=== PATIENT | female | born 1985 | race Caucasian/White ===

== ENCOUNTER 2018-05-26 04:55 | Inpatient (IN) | payer OTHER ==
[~2018-05-26] VITALS: Ht 152.4 cm; Wt 50.8 kg
[2018-05-26 04:55] VITALS: BP 201/121
--- NOTE | 2018-05-26 04:55 | NUR ---
PT [facility]. TAKEN TO BED 10
--- NOTE | 2018-05-26 04:55 | NUR ---
33[facility] PT C/O 09/14 CHEST PAIN/HEAVINESS, X1 HR. WAS NOT ABLE TO HAVE HD THIS AM. PT WAS GIVEN 0.4MG NITRO SL AND 325MG ASPIRIN PO WITH RELIEF, NSR ON SCENE. PT REPORTS PRODUCTIVE COUGH. PT DENIES FEVER, SOB, N/V. LUNG SOUNDS CLEAR BL. BS ACTIVE X4, ABD SOFT FLAT NONTENDER. AOX4, AMBULATORY, RR EVEN AND UNLABORED. L AV FISTULA NOTED, BRUIT AND THRILL NOTED. PT REPORTS BEING ABLE TO MAKE URINE. HX HTN, ESRD (MWF) Addendum: 05/26/18 at 0516 by WENDY PT REPORTS 04/14 HEADACHE
--- NOTE | 2018-05-26 05:04 | NUR ---
EKG PERFORMED AT BEDSIDE. PT COVERED IN GOWN AND BLANKET DURING PROCEDURE
--- NOTE | 2018-05-26 05:25 | NUR ---
X-Ray at bedside.
[2018-05-26 06:06] LABS: BASOPHILS # (AUTO) 0.1 K/uL (0.00-0.22); BASOPHILS % (AUTO) 1.5 % (0.0-2.0); EOSINOPHILS # (AUTO) 0.2 K/uL (0-0.4); EOSINOPHILS % (AUTO) 2.2 % (0.0-4.0); HEMOGLOBIN 11.1 g/dL (12.0-16.0); LYMPHOCYTES % (AUTO) 28.8 % (20.5-51.1); MEAN CORPUSCULAR HEMOGLOBIN 31 pg (27-31); MEAN CORPUSCULAR HGB CONC 33 g/dL (33-37); MEAN CORPUSCULAR VOLUME 95.3 fL (80-94); MONOCYTES # (AUTO) 0.3 K/uL (0.8-1.0); MONOCYTES % (AUTO) 4.4 % (1.7-9.3); NEUTROPHILS # (AUTO) 4.4 K/uL (1.8-7.7); NEUTROPHILS % (AUTO) 63.1 % (42.2-75.2); PLATELET COUNT (AUTO) 144 K/uL (140-450); RED BLOOD CELL COUNT(AUTO) 3.57 MIL/uL (4.20-5.40); RED CELL DISTRIBUTION WIDTH 16.2 % (11.6-13.7)
[2018-05-26 06:23] LABS: PROTHROMBIN TIME 10.6 secs (10.8-13.4)
[2018-05-26 06:30] LABS: ALBUMIN 3.9 g/dL (3.4-5.0); ANION GAP 14.7 (8-16); CARBON DIOXIDE 30.8 mmol/L (21-32); POTASSIUM 5.5 mmol/L (3.5-5.1); TOTAL BILIRUBIN 0.5 mg/dL (0.0-1.0)
[2018-05-26 06:32] LABS: CREATININE 13.6 mg/dL (0.6-1.3)
--- NOTE | 2018-05-26 06:47 | NUR ---
PT RESTING IN BED, RR EVEN AND UNLABORED. VS NOTED. ALL NEEDS MET.
--- NOTE | 2018-05-26 07:05 | NUR ---
recieved report from mona Tavarez.
[2018-05-26] MEDS ORDERED: NITROGLYCERIN 2% 1 GM PKT TP ONE (07:10)
[2018-05-26] MEDS ORDERED: SODIUM POLYSTYRENE 15 GM/60 ML UDBTL PO ONE (07:10)
[2018-05-26] MEDS ORDERED: MORPHINE SULFATE 2 MG/ML SYR IVP ONE (07:15)
[2018-05-26] MEDS ORDERED: ALBUTEROL 0.083% 2.5 MG/3 ML NEBU INH PRN (08:00)
[2018-05-26] MEDS ORDERED: LORazepam 2 MG/ML VIAL IVP PRN (08:00)
[2018-05-26] MEDS ORDERED: HYDROcodone/APAP 5/325 MG 1 TAB TAB PO PRN ×2 (08:00)
[2018-05-26] MEDS ORDERED: ACETAMINOPHEN 325 MG TAB PO PRN (08:00)
[2018-05-26] MEDS ORDERED: hydrALAZINE 20 MG/ML VIAL IM PRN (08:15)
[2018-05-26] MEDS ORDERED: NITROGLYCERIN 0.4 MG TAB SL PRN (08:15)
--- NOTE | 2018-05-26 08:23 | NUR ---
PT TAKEN TO FLOOR BY JOHN LUGO AND EMT HEIKE
--- NOTE | 2018-05-26 08:23 | NUR ---
Patient will be admitted to care of DR. KING. Admited to TELE. Will go to room 114. Belongings list completed. Report to JOHN ARREOLA.
[2018-05-26 08:30] VITALS: BP 189/112
--- NOTE | 2018-05-26 08:30 | NUR ---
RECEIVED SBAR REPORT FROM ER NURSE AT PT BEDSIDE. PATIENT AMBULATORY TO BED. ALERT AND ORIENTED, SOUTH KOREAN SPEAKING. C/O HEADACHE AND CHEST PAIN, MEDICATED BY ER NURSE, PATIENT STATES REDUCED PAIN. PATIENT HAS HX ESRD, AV SHUNT LEFT ARM. ON ROOM AIR, NO ACUTE RESPIRATORY DISTRESS NOTED. BP ON ARRIVAL 189/112, PAGE SENT TO DR. KING TO CLARIFY PRN ORDERS. PATIENT ORIENTED TO HOSPITAL ENVIRONMENT. CALL LIGHT WITHIN REACH. UPDATED ON CURRENT PLAN OF CARE, IN AGREEMENT. IV SITE PATENT AND INTACT. TO F/U MEDICATIONS.
[2018-05-26] MEDS ORDERED: hydrALAZINE 25 MG TAB PO SCH (09:05)
--- NOTE | 2018-05-26 09:06 | NUR ---
PATIENT HAS BEEN SCREENED AND CATEGORIZED MODERATE NUTRITION RISK. PATIENT WILL BE SEEN WITHIN 3-5 DAYS OF ADMISSION. 05/28/18 05/30/[address]
[2018-05-26] MEDS ORDERED: hydrALAZINE 25 MG TAB PO PRN (09:10)
--- NOTE | 2018-05-26 09:12 | NUR ---
DR. KING MADE AWARE CURRENT BP 189/112, RECEIVED PRN HYDRALAZINE PO, MEDICATED ORDERED. TO FOLLOW.
[2018-05-26] MEDS ORDERED: hydrALAZINE 20 MG/ML VIAL IVP PRN (10:45)
--- NOTE | 2018-05-26 10:45 | NUR ---
SPOKE WITH DIALYSIS CENTER FOR ORDERED HD TODAY, SCHEDULED AROUND 1-2PM.
--- NOTE | 2018-05-26 10:46 | NUR ---
PATIENT SEEN BY DR. KING AT BEDSIDE. MD MADE AWARE OF PATIENT'S HEADACHES AND NAUSEA WITH VOMITING, UPDATED TO CURRENT BP 193/120. ORDERS RECEIVED IVP PRN BP MEDICATIONS, CT HEAD ORDERED. TO FOLLOW.
--- NOTE | 2018-05-26 11:10 | NUR ---
PATIENT TAKEN OFF UNIT FOR CT SCAN, NO ACUTE DISTRESS NOTED.
[2018-05-26] MEDS: ONDANSETRON 4 MG/2 ML VIAL IVP PRN ×2 (11:39→11:44)
[2018-05-26 12:00] VITALS: BP 189/122
[2018-05-26] MEDS ORDERED: AMLO10TA4 PO (12:27)
[2018-05-26] MEDS ORDERED: LOSA100T1 PO (12:27)
[2018-05-26] MEDS ORDERED: cloNIDine 0.1 MG TAB PO PRN (13:50)
--- NOTE | 2018-05-26 14:00 | NUR ---
PATIENT SEEN BY DR. MICHAUD AT BEDSIDE. HD NURSE AT BEDSIDE. PATIENT TO HAVE HD. PER MD ORDERS, MEDICATE FOR ELEVATED BP DURING HD. TO FOLLOW.
--- NOTE | 2018-05-26 14:56 | NUR ---
PATIENT HAVING INCREASED AGITATION WITH ANXIETY. MEDICATED ORDERED WITH ATIVAN IVP. PATIENT BP TAKEN AT BEDSIDE 185/121, PER HD NURSE, OKAY TO GIVE ORDERED MEDICATION AT THIS TIME. MEDICATED ORDERED.
--- NOTE | 2018-05-26 15:10 | NUR ---
PATIENT STARTED ON HD AT BEDSIDE. NO ACUTE DISTRESS NOTED.
[2018-05-26 16:00] VITALS: BP 159/113
--- NOTE | 2018-05-26 17:09 | NUR ---
CONTINUED ON HD, PATIENT RESTING IN BED. NO ACUTE DISTRESS NOTED. PATIENT HAVING BP WITHIN NORMAL LIMITS AT THIS TIME.
--- NOTE | 2018-05-26 18:00 | NUR ---
PATIENT CONTINUED ON HD. NO ACUTE DISTRESS NOTED. Addendum: 05/26/18 at 1928 by Antonio Chao RN BP NOTED 109/73. WNL.
--- NOTE | 2018-05-26 19:10 | NUR ---
SBAR REPORT GIVEN TO JOHN WILKERSON AT PT BEDSIDE. PATIENT FINISHED WITH HD AT BEDSIDE AT THIS TIME. OUTPUT 3300 NOTED PER HD NURSE. PATIENT RESTING IN BED, DENIES DISCOMFORT AT THIS TIME. NO ACUTE DISTRESS NOTED.
--- NOTE | 2018-05-26 19:15 | NUR ---
RECEIVED PT FROM ELBA PEDROZA RN PT BRITISH SPEAKER AAOX4 AMBULATORY S/P HD 3,300 ML OUT ON TELEMETRY SR DENIES ANY PAIN AT THIS TIME INITIAL ASSESSMENT DONE
[2018-05-26 20:00] VITALS: BP 123/78
--- NOTE | 2018-05-26 20:55 | NUR ---
DR SNOW UTILITY WORKER PRODUCTION IS HERE AND SEE THE PT AND ORDER TO HOLD BLOOD PRESSURE MEDIC
[2018-05-26] MEDS ORDERED: LOSARTAN 50 MG TAB PO SCH (21:00)
--- NOTE | 2018-05-26 21:30 | NUR ---
AFTER PT TAKEN MRSA SWAB FROM NOSE PT HAS EPISTAXIS AND AND DR KING WAS NOTIFY
--- NOTE | 2018-05-26 23:00 | NUR ---
PT DOES NOT HAVE EPISTAXIS GETTING SLEEP
[2018-05-27] VITALS: BP 119/78
--- NOTE | 2018-05-27 | NUR ---
PT SLEEPING NOT DISTRESS NOTED ON TELEMETRY SR DENIES ANY PAIN
[2018-05-27 04:00] VITALS: BP 136/83
--- NOTE | 2018-05-27 04:00 | NUR ---
SPONGE BATH GIVEN LINEN CHANGED NOT EPISTAXIS NOTED ON TELEMETRY SR
--- NOTE | 2018-05-27 06:32 | NUR ---
PT SLEEPING, ON TELEMETRY SR NOTDISTRESS NOTED
--- NOTE | 2018-05-27 07:10 | NUR ---
PT REPORT RECEIVED FROM RUBBER FACTORY WORKER NURSE AT BEDSIDE. PT IS AWAKE AND ALERT, NO S/S OF DISTRESS NOTED. IV SITE NOTED ON R AC, 20 GAUGE, SALINE LOCK. DIALYSIS SHUNT NOTED ON L FOREARM. PT IS ON HD M, W, F. SKIN IS INTACT. PT IS ON ROOM AIR. CALL LIGHT WITHIN REACH, BED IS LOW. WILL CONTINUE TO MONITOR.
[2018-05-27 07:49] LABS: ALBUMIN 3.7 g/dL (3.4-5.0); ANION GAP 7.6 (8-16); POTASSIUM 4.6 mmol/L (3.5-5.1); TOTAL BILIRUBIN 0.5 mg/dL (0.0-1.0)
[2018-05-27 08:00] VITALS: BP 151/94
[2018-05-27 08:04] LABS: CREATININE 8.5 mg/dL (0.6-1.3)
[2018-05-27 08:16] LABS: BASOPHILS % (AUTO) 0.4 % (0.0-2.0); EOSINOPHILS # (AUTO) 0.1 K/uL (0-0.4); EOSINOPHILS % (AUTO) 0.7 % (0.0-4.0); HEMATOCRIT 30.7 % (36-48); HEMOGLOBIN 10.2 g/dL (12.0-16.0); LYMPHOCYTES # (AUTO) 1.8 K/uL (2.5-16.5); LYMPHOCYTES % (AUTO) 21.3 % (20.5-51.1); MEAN CORPUSCULAR HEMOGLOBIN 32 pg (27-31); MEAN CORPUSCULAR HGB CONC 33 g/dL (33-37); MEAN CORPUSCULAR VOLUME 95.7 fL (80-94); MONOCYTES # (AUTO) 0.6 K/uL (0.8-1.0); MONOCYTES % (AUTO) 7.3 % (1.7-9.3); NEUTROPHILS # (AUTO) 5.8 K/uL (1.8-7.7); NEUTROPHILS % (AUTO) 70.3 % (42.2-75.2); PLATELET COUNT (AUTO) 142 K/uL (140-450); RED BLOOD CELL COUNT(AUTO) 3.21 MIL/uL (4.20-5.40); RED CELL DISTRIBUTION WIDTH 16.2 % (11.6-13.7); WHITE BLOOD COUNT (AUTO) 8.2 K/uL (4.8-10.8)
[2018-05-27] MEDS ORDERED: amLODIPine 5 MG TAB PO SCH (09:00)
[2018-05-27] MEDS ORDERED: CLON0.1T42 PO (10:44)
--- NOTE | 2018-05-27 11:30 | NUR ---
PT IS ALERT AND AWAKE, NO S/S OF DISTRESS NOTED AT THIS TIME. WILL CONTINUE TO MONITOR.
--- NOTE | 2018-05-27 11:55 | NUR ---
RECEIVED ORDER FOR HIGH RISK CLINIC VISIT WITH [facility]. I CALLED KALEIGH AT [facility] AND FAXED THE ORDER. SHE SAID WE WERE TO MAKE THE APPOINTMENT.
[2018-05-27 12:00] VITALS: BP 142/89
--- NOTE | 2018-05-27 13:47 | NUR ---
Initial review faxed to [facility].
[2018-05-27 16:00] VITALS: BP 133/87
--- NOTE | 2018-05-27 17:30 | NUR ---
PT HAS DISCHARGED. DISCHARGE DOCUMENTS, INSTRUCTIONS, AND PRESCRIPTION GIVEN. SIGNATURES OBTAINED. PT VERBALIZED UNDERSTANDING. IV SITE DC'D, WRIST BANDS REMOVED. PT LEFT IN A STABLE CONDITION WITH ALL HER BELONGINGS. HER PICKED HER UP.
--- NOTE | 2018-05-27 17:32 | NUR ---
PT REFUSED FLU SHOT, STATES SHE RECEIVED IT AT A CLINIC THREE WEEKS AGO.
--- NOTE | 2018-05-29 11:44 | NUR ---
1897 PATIENT WAS CALLED ON PHONE PER REQUEST OF DCM BY BRAXTON LOPEZ WHO IS CANADIAN SPEAKING TO INFORM PATIENT THAT A PHYSICIAN APPOINTMENT HAS BEEN MADE FOR HER AT THE [facility] AT [address] [place] [address] [id number] AND PROVIDED HER WITH PHONE NUMBER [phone] AND INFORMED HER THAT HER APPOINTMENT IS FOR TOMORROW Saturday AT 10:30 AM. PT ACKNOWLEDGED THE INFORMATION.
== END 2018-05-27 17:30 | disposition home or self-care (01) | DRG 194 ==
LOC: MED 04:55 → MTU 08:14
PROVIDERS: ADMIT Hospitalist; ATTEND Hospitalist
DX: I13.2 Hypertensive heart and chronic kidney disease with heart failure and with stage 5 chronic kidney disease, or end stage renal disease (principal); E87.5 Hyperkalemia; N18.6 End stage renal disease; K21.9 Gastro-esophageal reflux disease without esophagitis; I50.43 Acute on chronic combined systolic (congestive) and diastolic (congestive) heart failure; D63.8 Anemia in other chronic diseases classified elsewhere; I16.0 Hypertensive urgency; I07.1 Rheumatic tricuspid insufficiency; I34.0 Nonrheumatic mitral (valve) insufficiency; Z99.2 Dependence on renal dialysis; Z98.51 Tubal ligation status; Z82.49 Family history of ischemic heart disease and other diseases of the circulatory system
CPT/HCPCS: 36415; 70450; 71045; 80053; 83540; 83880; 84484; 85025; 85610; 85730; 87081; 93005; 96374; 99285; J0360; J2060; J2270; J2405; Q0092

== ENCOUNTER 2018-07-23 01:01 | Emergency (ER) | payer OTHER ==
[~2018-07-23] VITALS: Ht 152.4 cm; Wt 52.2 kg
[~2018-07-23 01:01] MED LIST: AMLO10TA4 PO; CLON0.1T42 PO; LOSA100T1 PO
[2018-07-23 01:05] VITALS: BP 231/123
--- NOTE | 2018-07-23 01:10 | NUR ---
PT TO ER BED 2 , ER MADE AWARE OF B/P
--- NOTE | 2018-07-23 01:19 | NUR ---
PT PRESENTS TO ED WITH C/O HIGH BP WITH HEADACHE AND BLURRY VISION. PT REPORTS GRADUAL ONSET OVER 1 HR. PT REPORTS PAIN TO RIGHT AND POSTERIOR HEAD. PT PLACED INTO BED, PENDING MD LOPEZ. ER MD AWARE OF BP.
[2018-07-23] MEDS ORDERED: LORazepam 2 MG/ML VIAL IM ONE (01:20)
[2018-07-23] MEDS ORDERED: cloNIDine 0.1 MG TAB PO ONE (01:20)
[2018-07-23] MEDS ORDERED: hydrALAZINE 20 MG/ML VIAL IM ONE (02:25)
[2018-07-23 02:46] VITALS: BP 142/78
--- NOTE | 2018-07-23 02:47 | NUR ---
Patient discharged with v/s stable. Written and verbal after care instructions given and explained. Patient verbalized understanding. Ambulatory with steady gait. All questions addressed prior to discharge. Advised to follow up with PMD.
== END 2018-07-23 02:47 | disposition home or self-care (01) ==
LOC: MED 01:01
DX: I12.0 Hypertensive chronic kidney disease with stage 5 chronic kidney disease or end stage renal disease (principal); N18.6 End stage renal disease; Z79.899 Other long term (current) drug therapy
CPT/HCPCS: 70450; 81002; 81025; 96372; 99284; J2060

== ENCOUNTER 2018-07-30 07:48 | Inpatient (IN) | payer OTHER ==
[~2018-07-30] VITALS: Ht 152.4 cm; Wt 53.5 kg
--- NOTE | 2018-07-30 07:48 | NUR ---
PATIENT BIBA TO BED 2 AT THIS TIME.
--- NOTE | 2018-07-30 07:50 | NUR ---
33Y/F BIB EMS FROM A DIALYSIS CENTER WITH C/O HEAD AHCE 03/14. GIVEN CLONIDINE X 2 AT THE FACILITY; BP 180/106, SPO2 100% ON 2LPM N/C; AV FISTULA LT ARM, IV 20G RT AC PLACE BY EMS; AAO X4, ANSWER QUESTIONS APPROPRIATELY. PT BED DOWN, BEDRAIL UP X 1, ER MD AWARE AND NOTIFIED OF PT STATUS. HX; HTN, DM RX; CLONIDINE, AMLOPIDINE, PHOSLO, LOSARTAN
[2018-07-30 07:52] VITALS: BP 180/106
[2018-07-30] MEDS ORDERED: ENALAPRILAT 2.5 MG/2 ML VIAL IVP ONE ×2 (08:20→09:40)
[2018-07-30] MEDS ORDERED: LORazepam 2 MG/ML VIAL IVP ONE (08:20)
[2018-07-30] MEDS ORDERED: FUROSEMIDE 40 MG/4 ML VIAL IVP ONE (08:20)
--- NOTE | 2018-07-30 08:24 | NUR ---
Patient being evaluated by physician at bedside.
--- NOTE | 2018-07-30 08:27 | NUR ---
PT IS NOT ABLE TO GIVE URINE, DIALYSIS PT
--- NOTE | 2018-07-30 08:45 | NUR ---
RAD/CT AT BEDSIDE
[2018-07-30 09:06] LABS: EOSINOPHILS # (AUTO) 0.1 K/uL (0-0.4); EOSINOPHILS % (AUTO) 1.8 % (0.0-4.0); HEMATOCRIT 31.9 % (36-48); HEMOGLOBIN 10.5 g/dL (12.0-16.0); LYMPHOCYTES # (AUTO) 1.2 K/uL (2.5-16.5); MEAN CORPUSCULAR HEMOGLOBIN 30 pg (27-31); MEAN CORPUSCULAR HGB CONC 33 g/dL (33-37); MEAN CORPUSCULAR VOLUME 92.2 fL (80-94); MONOCYTES # (AUTO) 0.3 K/uL (0.8-1.0); MONOCYTES % (AUTO) 6.3 % (1.7-9.3); NEUTROPHILS # (AUTO) 3.2 K/uL (1.8-7.7); NEUTROPHILS % (AUTO) 65.9 % (42.2-75.2); PLATELET COUNT (AUTO) 143 K/uL (140-450); RED BLOOD CELL COUNT(AUTO) 3.46 MIL/uL (4.20-5.40); RED CELL DISTRIBUTION WIDTH 15.1 % (11.6-13.7); WHITE BLOOD COUNT (AUTO) 4.9 K/uL (4.8-10.8)
[2018-07-30] MEDS ORDERED: cloNIDine 0.1 MG TAB PO ONE (09:40)
--- NOTE | 2018-07-30 09:40 | NUR ---
PT STATES SHE DOES NOT PRODUCE URINE
[2018-07-30 09:41] LABS: PROTHROMBIN TIME 9.8 secs (10.8-13.4)
[2018-07-30 09:42] LABS: ANION GAP 11.2 (8-16); POTASSIUM 4.2 mmol/L (3.5-5.1)
[2018-07-30 09:44] LABS: CREATININE 5.4 mg/dL (0.6-1.3)
[2018-07-30 09:57] LABS: ALBUMIN 3.6 g/dL (3.4-5.0); TOTAL BILIRUBIN 0.4 mg/dL (0.0-1.0)
[2018-07-30] MEDS ORDERED: LISINOPRIL 10 MG TAB ONE (10:01)
[2018-07-30 10:14] LABS: AMYLASE 47 U/L (25-115); LIPASE 156 U/L (73-393)
--- NOTE | 2018-07-30 10:41 | NUR ---
Patient appears to be resting comfortably in bed. Respirations even and unlabored.
[2018-07-30] MEDS ORDERED: ONDANSETRON 4 MG/2 ML VIAL IVP PRN (10:45)
[2018-07-30] MEDS ORDERED: HYDROcodone/APAP 5/325 MG 1 TAB TAB PO PRN (10:45)
[2018-07-30] MEDS ORDERED: hydrALAZINE 20 MG/ML VIAL IVP PRN (10:45)
--- NOTE | 2018-07-30 11:10 | NUR ---
Patient will be admitted to care of . Admited to TELE FLOOR. Will go to room 105-A. Belongings list completed. Report to JOHN THURSTON.
[2018-07-30 11:20] VITALS: BP 126/87
--- NOTE | 2018-07-30 11:25 | NUR ---
RECEIVED BEDSIDE REPORT FROM ER NURSE. PATIENT AAOX4. PATIENT MOSOTHO SPEAKING. NO SIGNS OF RESPIRATORY DISTRESS, ON RA. PATIENT AMBULATORY, IS ABLE TO AMBULATE TO BATHROOM. SKIN INTACT. IV ON R FA 20 G, SALINE LOCK, CLEAN DRY AND INTACT. PATIENT W L AV FISTULA ACCESS, COVERED WITH DRESSING. L ARM RESTRICTION SIGN POSTED. STRICT I&O SIGN POSTED. BED IN LOW POSITION, CALL LIGHT WITHIN REACH. WILL CONTINUE TO MONITOR.
--- NOTE | 2018-07-30 13:05 | NUR ---
PATIENT SLEEPING. NO SIGNS OF DISTRESS NOTED, ON RA. WILL CONTINUE TO MONITOR.
[2018-07-30] MEDS ORDERED: ALPRAZolam 0.5 MG TAB PO PRN (13:20)
[2018-07-30 13:40] VITALS: BP 132/76
--- NOTE | 2018-07-30 13:40 | NUR ---
PT UNABLE TO GIVE SPUTUM AT THIS TIME. LEFT SPUTUM CUP AT BEDSIDE FOR PT. WILL CONT TO MONITOR PT.
--- NOTE | 2018-07-30 14:00 | NUR ---
PATIENT RETURNED FROM CT SCAN. PATIENT TOLERATED WELL. WILL CONTINUE TO MONITOR.
--- NOTE | 2018-07-30 15:10 | NUR ---
PATIENT SLEEPING. NO SIGNS OF DISTRESS NOTED. WILL CONTINUE TO MONITOR.
[2018-07-30 16:00] VITALS: BP 151/91
--- NOTE | 2018-07-30 17:00 | NUR ---
PATIENT SPEAKING ON CELL PHONE. NO SIGNS OF DISTRESS NOTED. WILL CONTINUE TO MONITOR.
--- NOTE | 2018-07-30 18:10 | NUR ---
PATIENT AMBULATED TO BATHROOM. NO SIGNS OF DISTRESS. WILL CONTINUE TO MONITOR.
--- NOTE | 2018-07-30 19:29 | NUR ---
GAVE BEDSIDE REPORT TO FARMER CASH GRAIN NURSE. PATIENT ENDORSED IN STABLE CONDITION.
--- NOTE | 2018-07-30 19:30 | NUR ---
RECEIVED REPORT FROM DAY SHIFT RN. PT IS A&OX4. RESPIRATIONS ARE EQUAL AND UNLABORED. DENIES ANY SOB OR PAIN. PT WITH LEFT AV FISTULA ACCESS HAD DIALYSIS TODAY NOT IN [facility]. PATIENT RECEIVES HEMODIALYSIS ON MONDAYS,WEDNESDAYS, AND FRIDAYS. PER NO NEED FOR DIALYSIS TOMORROW. LEFT ARM RESTRICTION SIGN IN ROOM ALSO PINK RESTRICTION ARM BAND APPLIED. STRICT I&O SIGN IN ROOM. PT WITH SALINE LOCK ON R FA 20G. IV IS PATENT AND CLEAN. SKIN INTACT. PLAN OF CARE DISCUSSED WITH PT. ALL SAFETY MEASURES ARE IN PLACE.
[2018-07-30 20:00] VITALS: BP 146/82
--- NOTE | 2018-07-30 20:33 | NUR ---
VITAL SIGNS ARE WITHIN NORMAL LIMITS. B/P ELEVATED 146/82 AND 71BPM. DUE MEDICATION GIVEN FOR B/P. PT TOLERATED WELL. WILL CONTINUE TO MONITOR.
[2018-07-30] MEDS ORDERED: LOSARTAN 50 MG TAB PO SCH (21:00)
[2018-07-30] MEDS ORDERED: LOSARTAN POTASSIUM 100 MG PO SCH (21:00)
[2018-07-31] VITALS: BP 136/79
[2018-07-31] MEDS: ACETAMINOPHEN 325 MG TAB PO PRN ×2 (00:17→08:04)
--- NOTE | 2018-07-31 00:17 | NUR ---
VITAL SIGNS ARE WITHIN NORMAL LIMITS. PT COMPLAIN OF HEADACHE. TYLENOL WAS GIVEN. WILL CONTINUE TO MONITOR.
--- NOTE | 2018-07-31 02:10 | NUR ---
PT ASLEEP. RESPIRATIONS ARE EQUAL AND UNLABORED. NO DISTRESS NOTED. CALL LIGHT WITHIN REACH.
[2018-07-31 03:50] VITALS: BP 126/77
--- NOTE | 2018-07-31 03:52 | NUR ---
VITAL SIGNS ARE WITHIN NORMAL LIMITS. PT DENIES ANY PAIN. ALL NEEDS MET AT THIS TIME. CALL LIGHT WITHIN REACH.
--- NOTE | 2018-07-31 07:29 | NUR ---
ENDORSED PATIENT TO DAY SHIFT RN. PATIENT IS IN STABLE CONDITION.
--- NOTE | 2018-07-31 07:30 | NUR ---
RECEIVED BEDSIDE REPORT FROM INSURANCE COORDINATOR NURSE. PATIENT IS AWAKE, ALERT AND ORIENTEDX4. NO SIGNS OF DISTRESS ON RA. SKIN IS INTACT. IV ON L FA 20G SL. CLEAN,DRY AND INTACT. DIALYSIS AV SHUNT ON L ARM, NO B/P OR VENIPUNCTURE ON L ARM SIGNS POSTED, RESTRICTED ARM BAND IN PLACE. PATIENT IS AMBULATORY, CONTINENT. NO COMPLAINTS AT THIS TIME. BED IN LOW POSITION. CALL LIGHT WITHIN REACH. WILL CONTINUE TO MONITOR THE PATIENT.
[2018-07-31 07:58] LABS: BASOPHILS % (AUTO) 0.7 % (0.0-2.0); EOSINOPHILS # (AUTO) 0.1 K/uL (0-0.4); EOSINOPHILS % (AUTO) 1.4 % (0.0-4.0); HEMATOCRIT 32.4 % (36-48); HEMOGLOBIN 10.6 g/dL (12.0-16.0); LYMPHOCYTES # (AUTO) 1.9 K/uL (2.5-16.5); LYMPHOCYTES % (AUTO) 33.1 % (20.5-51.1); MEAN CORPUSCULAR HEMOGLOBIN 31 pg (27-31); MEAN CORPUSCULAR HGB CONC 33 g/dL (33-37); MEAN CORPUSCULAR VOLUME 93.7 fL (80-94); MONOCYTES # (AUTO) 0.5 K/uL (0.8-1.0); MONOCYTES % (AUTO) 8.8 % (1.7-9.3); NEUTROPHILS # (AUTO) 3.1 K/uL (1.8-7.7); PLATELET COUNT (AUTO) 148 K/uL (140-450); RED BLOOD CELL COUNT(AUTO) 3.46 MIL/uL (4.20-5.40); RED CELL DISTRIBUTION WIDTH 15.2 % (11.6-13.7); WHITE BLOOD COUNT (AUTO) 5.6 K/uL (4.8-10.8)
[2018-07-31 08:00] VITALS: BP 122/71
--- NOTE | 2018-07-31 08:05 | NUR ---
ADMINISTERED MEDS. PATIENT TOLERATED WELL. WILL CONTINUE TO MONITOR THE PATIENT
--- NOTE | 2018-07-31 08:53 | NUR ---
PATIENT HAS BEEN SCREENED AND CATEGORIZED MODERATE NUTRITION RISK. PATIENT WILL BE SEEN WITHIN 3-5 DAYS OF ADMISSION. 08/01/18 08/03/[address]
[2018-07-31] MEDS ORDERED: LISINOPRIL 20 MG TAB PO ONE (09:00)
[2018-07-31] MEDS ORDERED: amLODIPine 5 MG TAB PO SCH (09:00)
[2018-07-31] MEDS ORDERED: VIT-B COMP/VIT-C/FOLIC ACID 1 TAB PO SCH (09:00)
[2018-07-31] MEDS ORDERED: NON-FORMULARY ITEM (Amlodipine Besylate (Amlodipine) 10 MG) PO SCH (09:00)
[2018-07-31 09:15] LABS: ANION GAP 14.6 (8-16); CARBON DIOXIDE 30.6 mmol/L (21-32)
[2018-07-31 09:17] LABS: MAGNESIUM 2.3 mg/dL (1.8-2.4); PHOSPHORUS 6.4 mg/dL (2.5-4.9)
[2018-07-31 09:18] LABS: CREATININE 8.7 mg/dL (0.6-1.3); POTASSIUM 6.2 mmol/L (3.5-5.1)
--- NOTE | 2018-07-31 10:24 | NUR ---
SPOKE TO ENO[facility], DIALYSIS NURSE ABOUT STAT HD ORDER TODAY PER DR BAPTISTE. THEY SAID THEY WILL BE HERE SOON POSSIBLE. DR BAPTISTE WILL GIVE THEM THE DIALYSIS ORDER.
--- NOTE | 2018-07-31 10:47 | NUR ---
PATIENT SIGNED DIALYSIS CONSENT. NO SIGNS OF DISTRESS. WILL CONTINUE TO MONITOR THE PATIENT
[2018-07-31] MEDS ORDERED: AMOX500C25 PO (10:53)
[2018-07-31 12:00] VITALS: BP 130/80
--- NOTE | 2018-07-31 12:33 | NUR ---
HD NURSE AT BEDSIDE. HD ORDERS ARE IN. PATIENT IN NO SIGNS OF DISTRESS. WILL CONTINUE TO MONITOR THE PATIENT
--- NOTE | 2018-07-31 14:00 | NUR ---
NOT ADMINISTERING ANTIBIOTICS UNTIL AFTER DIALYSIS. PATIENT TOLERATING DIALYSIS WELL.
--- NOTE | 2018-07-31 14:39 | NUR ---
PATIENT SITTING IN BED. NO SIGNS OF DISTRESS ON RA. WILL CONTINUE TO MONITOR THE PATIENT
--- NOTE | 2018-07-31 15:54 | NUR ---
VITALS ARE STABLE AFTER DIALYSIS 2L OUT. WILL ADMINISTER ANTIBIOTICS NOW. POTASSIUM LAB ORDER IN ONE HOUR. WILL CONTINUE TO MONITOR THE PATIENT
[2018-07-31 16:00] VITALS: BP 120/65
--- NOTE | 2018-07-31 17:30 | NUR ---
EDUCATED PATIENT ON DISCHARGE INSTRUCTIONS. EDUCATED ON DISEASE PROCESS, ABN S/SX AND WHEN TO GO TO THE ER, EDUCATED ON MEDS, GAVE PRESCRIPTION, PATIENT HAS PNA AND FLU VACCINE UP TO DATE. EDUCATED ON F/U W PCP AND CHRONIC CONDITION NURSE AND TO GET SCHEDULED DIALYSIS TOMORROW. REMOVED IV, TIP INTACT. PATIENT TO CHANGE AND WILL WAIT FOR RIDE HOME.
--- NOTE | 2018-07-31 18:40 | NUR ---
REMOVED ID BANDS AND TELE MONITOR. PATIENT LEFT WALKING W IN STABLE CONDITION
== END 2018-07-31 18:40 | disposition home or self-care (01) | DRG 199 ==
LOC: MED 07:48 → MTU 10:18
PROVIDERS: ADMIT Internal Medicine Pulmonary Disease; ATTEND Internal Medicine Pulmonary Disease
DX: I16.0 Hypertensive urgency (principal); N18.6 End stage renal disease; E87.5 Hyperkalemia; D63.1 Anemia in chronic kidney disease; N25.81 Secondary hyperparathyroidism of renal origin; K05.10 Chronic gingivitis, plaque induced; I12.0 Hypertensive chronic kidney disease with stage 5 chronic kidney disease or end stage renal disease; Z99.2 Dependence on renal dialysis; Z82.49 Family history of ischemic heart disease and other diseases of the circulatory system
CPT/HCPCS: 36415; 70450; 71045; 71260; 80048; 80053; 82150; 82550; 83690; 83735; 83880; 84100; 84132; 84484; 84703; 85025; 85379; 85610; 85730; 87081; 87804; 93005; 96374; 96375; 96376; 99285; J0360; J0696; J1940; J2060; J3490; J7060; Q0092; Q9967

== ENCOUNTER 2018-08-11 00:45 | Emergency (ER) | payer OTHER ==
[~2018-08-11] VITALS: Ht 149.9 cm; Wt 55.3 kg
[~2018-08-11 00:45] MED LIST changes: +AMOX500C25 PO
--- NOTE | 2018-08-11 01:00 | NUR ---
PT AMBULATED TO BED 4 WITH VSS.
[2018-08-11 01:03] VITALS: BP 175/100
--- NOTE | 2018-08-11 01:10 | NUR ---
PT C/O HTN, HEADACHE, AND ANXIETY. PT BP 172/96, STATES SHE HAS A THROBBING HEADACHE AT 6/10, HAS DIZZYNESS AND NAUSEA. PT DENIES CP, BLURRY VISISON, OR SOB AT THIS TIME. PT HAS HEMODIALYSIS Q SATURDAY, SATURDAY, SATURDAY, AND SATURDAY. ER MD TO SEE PT. SIDE RAILS UP, BED IN LOWEST POSITION, HEAD OF BED ELEVATED. WILL CONTINUE TO MONITOR. MEDHX: HTN, RENAL DISEASE, HEMODIALYSIS, ANXIETY RX: CLONIDINE, AMLODIPNE, AMOXACILLIN
--- NOTE | 2018-08-11 01:17 | NUR ---
Patient being evaluated by physician at bedside.
[2018-08-11] MEDS ORDERED: KETOROLAC 60 MG/2 ML VIAL IM ONE (01:25)
[2018-08-11 02:00] VITALS: BP 162/98
--- NOTE | 2018-08-11 02:00 | NUR ---
Patient discharged with v/s stable. Written and verbal after care instructions given and explained. Patient alert, oriented and verbalized understanding of instructions. Ambulatory with steady gait. All questions addressed prior to discharge. ID band removed. Patient advised to follow up with PMD. Rx of motrin, atarax, and norco given. Patient educated on indication of medication including possible reaction and side effects. Opportunity to ask questions provided and answered.
== END 2018-08-11 02:00 | disposition home or self-care (01) ==
LOC: MED 00:45
DX: R51 Headache (principal); F41.9 Anxiety disorder, unspecified; I10 Essential (primary) hypertension; Z79.2 Long term (current) use of antibiotics; Z79.899 Other long term (current) drug therapy
CPT/HCPCS: 96372; 99283; J1885

== ENCOUNTER 2018-08-14 18:42 | Inpatient (IN) | payer OTHER ==
[~2018-08-14] VITALS: Ht 152.4 cm; Wt 48.5 kg
[2018-08-14 19:15] VITALS: BP 193/100
--- NOTE | 2018-08-14 19:18 | NUR ---
TO LOBBY A/W BED, APPLIED NASAL CLAMP, ERMD NOTED.
--- NOTE | 2018-08-14 19:51 | NUR ---
PT AMBULATED TO BED 11
--- NOTE | 2018-08-14 20:00 | NUR ---
33/F PRESENTS TO ED, C/O EPISTAXIS, STARTED 2 HRS AGO. PT WITH NOSE CLAMP AT THIS TIME, PLACED IN TRIAGE. PT REPORTED THAT SHE ALSO HAD EPITAXIS THAT RESOLVED IN 30 MINS LAST NIGHT AFTER HD. PT REPORTS 3/10 HEADACHE AT THIS TIME. PT AOX4, GCS 15, RR EVEN AND UNLABORED. LUNG SOUNDS CLEAR BL. L FA AV SHUNT NOTED, +BRUIT, +THRILL. HX HTN, ESRD (HD ON MWF)
[2018-08-14 20:36] LABS: EOSINOPHILS # (AUTO) 0.2 K/uL (0-0.4); HEMATOCRIT 35.1 % (36-48); HEMOGLOBIN 11.2 g/dL (12.0-16.0); MEAN CORPUSCULAR HGB CONC 32 g/dL (33-37); MONOCYTES # (AUTO) 0.4 K/uL (0.8-1.0); NEUTROPHILS # (AUTO) 4.8 K/uL (1.8-7.7); WHITE BLOOD COUNT (AUTO) 7.8 K/uL (4.8-10.8)
[2018-08-14 20:42] LABS: BASOPHILS % (AUTO) 0.3 % (0.0-2.0); EOSINOPHILS % (AUTO) 2.4 % (0.0-4.0); LYMPHOCYTES # (AUTO) 2.4 K/uL (2.5-16.5); LYMPHOCYTES % (AUTO) 30.8 % (20.5-51.1); MEAN CORPUSCULAR HEMOGLOBIN 30 pg (27-31); MEAN CORPUSCULAR VOLUME 92.9 fL (80-94); MONOCYTES % (AUTO) 5.2 % (1.7-9.3); NEUTROPHILS % (AUTO) 61.3 % (42.2-75.2); PLATELET COUNT (AUTO) 183 K/uL (140-450); RED BLOOD CELL COUNT(AUTO) 3.78 MIL/uL (4.20-5.40); RED CELL DISTRIBUTION WIDTH 15.3 % (11.6-13.7)
[2018-08-14 20:55] LABS: PROTHROMBIN TIME 9.6 secs (10.8-13.4)
[2018-08-14 20:56] LABS: ANION GAP 15.2 (8-16); CARBON DIOXIDE 31.3 mmol/L (21-32); POTASSIUM 5.5 mmol/L (3.5-5.1)
[2018-08-14 20:58] LABS: CREATININE 10.2 mg/dL (0.6-1.3)
[2018-08-14 20:59] LABS: ALBUMIN 3.5 g/dL (3.4-5.0); TOTAL BILIRUBIN 0.3 mg/dL (0.0-1.0)
[2018-08-14] MEDS ORDERED: SODIUM POLYSTYRENE 15 GM/60 ML UDBTL PO ONE (21:10)
[2018-08-14] MEDS ORDERED: SODIUM POLYSTYRENE 15 GM/60 ML UDBTL ONE (21:39)
--- NOTE | 2018-08-14 21:55 | NUR ---
HIGH BP, ERMD NOTED, WITH ORDER, MEDICATED, PATIENT TOLERATED WELL.
[2018-08-14] MEDS ORDERED: cloNIDine 0.1 MG TAB PO ONE (22:00)
[2018-08-14] MEDS ORDERED: hydrALAZINE 20 MG/ML VIAL IM ONE (22:30)
[2018-08-14] MEDS ORDERED: ONDANSETRON 4 MG ODT PO ONE (22:30)
--- NOTE | 2018-08-14 22:30 | NUR ---
PT BP 191/120, HR 98, PT REPORTS VOMITING AFTER CLONIDINE PO. PT REPORTS L SIDED CHEST HEAVINESS, NOT PAIN. ER MD MADE AWARE
--- NOTE | 2018-08-14 23:30 | NUR ---
PT C/O SUDDEN ONSET L SIDED CP, RADIATING TO L SHOULDER. PT RESTLESS WITH FACIAL GRIMACING. ER MD MADE AWARE. EMT AT BEDSIDE FOR EKG.
[2018-08-14] MEDS ORDERED: DILTIAZEM 25 MG/5 ML VIAL IVP ONE (23:35)
--- NOTE | 2018-08-14 23:45 | NUR ---
X-RAY AT BEDSIDE.
[2018-08-14] MEDS ORDERED: MORPHINE SULFATE 4 MG/ML SYR IVP STA (23:48)
[2018-08-15] VITALS (9 sets, daily range): BP systolic 140–180; BP diastolic 83–108
[2018-08-15] MEDS ORDERED: MULT-1469 PO (00:19)
[2018-08-15] MEDS ORDERED: ACETAMINOPHEN 325 MG TAB PO PRN (00:20)
[2018-08-15] MEDS ORDERED: HYDROcodone/APAP 5/325 MG 1 TAB TAB PO PRN (00:20)
[2018-08-15] MEDS ORDERED: ONDANSETRON 4 MG/2 ML VIAL IVP PRN (00:20)
--- NOTE | 2018-08-15 01:30 | NUR ---
Patient will be admitted to care of DR. HOGAN. Admited to TELE. Will go to room 106B. Belongings list completed. Report to JOHN SIMMONS.
--- NOTE | 2018-08-15 01:35 | NUR ---
RECEIVED REPORT FROM ER NURSE AGUILA AT BEDSIDE FOR CONTINUITY OF CARE. PT IS AMBULATORY. NO SOB NO S/S OF DISTRESS ON RA. IV NOTED RAC 18G, HAS LFA SHUNT (NO BP OR IV ACCESS). BED LOWERED PT ORIENTED TO ROOM. WILL CONTINUE TO MONITOR.CALL LIGHT WITHIN REACH WILL CONTINUE TO MONITOR.
--- NOTE | 2018-08-15 02:18 | NUR ---
PT HAS ELEVATED BP 172/104 HR 109 WILL ADMIN APRESOLINE FOR BP. AND PT STATED SHE HAS A REACTION AND PUFFY NESS OF EYES WILL CALL .
[2018-08-15] MEDS: hydrALAZINE 25 MG TAB PO PRN ×2 (02:25→12:54)
[2018-08-15] MEDS: diphenhydrAMINE 50 MG/ML VIAL IVP PRN ×2 (03:01→13:52)
--- NOTE | 2018-08-15 07:17 | NUR ---
ENDORSED REPORT TO DAYSHIFT NURSE AT BEDSIDE FOR CONTINUITY OF CARE.
--- NOTE | 2018-08-15 07:20 | NUR ---
RECEIVED PT FROM BUNDLER NURSE, PT IS AWAKE AND LYING ON THE BED WITH SIDE RAILS UP AND CALL LIGHT WITHIN REACH, PT HAS A RESTRICTED EXTREMITY ON THE LEFT, WITH AN AV SHUNT IN PLACE, PT HAS AN IV LINE ON THE RT AC G.18 ON SALINE LOCK, PT VERBALIZED A HEADACHE OF A PAIN RATE OF 6/10 AND REQUESTED TO BE GIVEN TYLENOL. WILL MEDICATE PT.
[2018-08-15] MEDS: amLODIPine 5 MG TAB PO SCH ×2 (08:14→09:00)
[2018-08-15] MEDS: LORATADINE 10 MG TAB PO SCH (08:14)
--- NOTE | 2018-08-15 08:21 | NUR ---
PT IS AWAKE AND VERBALIZED A PAIN RATE OF 8/10 FOR THE HEADACHE AND ASKED FOR A TYLENOL. WILL MONITOR PT.
--- NOTE | 2018-08-15 08:39 | NUR ---
PATIENT HAS BEEN SCREENED AND CATEGORIZED MODERATE NUTRITION RISK. PATIENT WILL BE SEEN WITHIN 3-5 DAYS OF ADMISSION. 08/17/18 08/19/[address]
[2018-08-15] MEDS ORDERED: NON-FORMULARY ITEM (Amlodipine Besylate (Amlodipine) 10 MG) PO SCH (09:00)
--- NOTE | 2018-08-15 10:40 | NUR ---
DIALYSIS WAS STARTED TO PT NOW.
--- NOTE | 2018-08-15 12:56 | NUR ---
PT IS AWAKE AND SEATED ON THE BED, DIALYSIS IS STILL GOING, DIALYSIS NURSE INFORMED JOHN WINN ABOUT THE PT'S BP OF 171/97 AND PULSE IS 95, HYDRALAZINE WAS GIVEN TO PT AND PT TOLERATED IT, WILL RE-ASSESS BP.
--- NOTE | 2018-08-15 13:42 | NUR ---
DIALYSIS CALLED AND INFORMED THAT PT'S BP IS 180/108 AND IS ASKING FOR BENADRYL. WILL MEDICATE PT.
[2018-08-15] MEDS: cloNIDine 0.1 MG TAB PO PRN ×2 (13:51→22:19)
--- NOTE | 2018-08-15 14:20 | NUR ---
DIALYSIS WAS FINISHED NOW AND 2L OUTPUT WAS TAKEN, VITAL SIGNS TAKEN AND PT' BP IS 160/94, PULSE IS 89, RESPIRATION AT 18 AND O2 SATURATION IS 98%. PT IS STABLE AND DENIES PAIN AT THIS TIME.
--- NOTE | 2018-08-15 15:08 | NUR ---
CM NOTE PER YOHAN # [phone], THE PATIENT IS SCHEDULED FOR OUTPATIENT FOLLOW UP APPOINTMENT WITH DR. SONJA VACA (WHO IS COVERING FOR PATIENT'S PCP DR. REJI GREGORIO WHO IS ON VACATION) ON AUGUST 21, 2018 AT 10:30AM, CLINIC AT [address] [place], [place] [id number]. I GAVE THE PATIENT A COPY OF HER OUTPATIENT FOLLOW UP SCHEDULE.
--- NOTE | 2018-08-15 19:20 | NUR ---
ENDORSED PT TO HEATER PLANER OPERATOR NURSEMELISSA FOR CONTINUITY OF CARE, PT IS STABLE AT THIS TIME.
--- NOTE | 2018-08-15 19:21 | NUR ---
RECEIVED REPORT FROM DAY SHIFT NURSE TATUM-RN AT BEDSIDE. PT AOX4, ON ROOM AIR WITH RIGHT AC #18G-SL. LEFT FA AV SHUNT- RESTRICTED EXTREMITY- DIALYSIS ON MWF WITH 2L OUTPUT TODAY. DISCUSSED PLAN OF CARE AND PT VERBALIZED UNDERSTANDING. NO S/S OF RESPIRATORY DISTRESS OR DISCOMFORT NOTED AT THIS TIME. BED IN LOWEST POSITION, BED BREAKS ON, BOTH SIDE RAILS UP. WILL CONTINUE TO MONITOR.
--- NOTE | 2018-08-15 20:00 | NUR ---
VITAL SIGNS TAKEN AND TOLERATED WELL. NO S/S OF RESPIRATORY DISTRESS OR DISCOMFORT NOTED AT THIS TIME. WILL CONTINUE TO MONITOR.
[2018-08-15] MEDS ORDERED: LOSARTAN POTASSIUM 100 MG PO SCH (21:00)
[2018-08-15] MEDS ORDERED: LOSARTAN 50 MG TAB PO SCH (21:00)
--- NOTE | 2018-08-15 21:01 | NUR ---
SCHEDULED MEDICATION GIVEN AND TOLERATED WELL. PT REFUSED HEPARIN STATING "I HAD A NOSE BLEED AND WAS TOLD THAT I WOULDN'T BE GETTING HEPARIN BECAUSE OF IT." VERIFIED THIS WITH TATUM-JOHN DAY SHIFT NURSE THAT HEPARIN WAS NOT GIVEN. NO S/S OF RESPIRATORY DISTRESS OR DISCOMFORT NOTED AT THIS TIME. WILL CONTINUE TO MONITOR.
--- NOTE | 2018-08-15 22:19 | NUR ---
PT STATED SHE STARTED TO GET A HEADACHE- SYMPTOMS OF HIGH BLOOD PRESSURE. 161-101. SPOKE WITH CHARGE NURSE MADIE AND SHE STATED IT WAS OK TO GIVE CATAPRES. MEDICATION GIVEN AND TOLERATED WELL. NO S/S OF RESPIRATORY DISTRESS OR DISCOMFORT NOTED AT THIS TIME. WILL CONTINUE TO MONITOR.
--- NOTE | 2018-08-15 23:41 | NUR ---
CATAPRES REASSESSMENT 144/102, HR 78. PT C/O RESTLESS LEG SYNDROME AND WANTING PAIN MEDICATION.
[2018-08-16] VITALS: BP 144/102
--- NOTE | 2018-08-16 00:23 | NUR ---
NORCO GIVEN FOR PAIN IN THE LEGS. PT TOLERATED WELL. WILL CONTINUE TO MONITOR.
--- NOTE | 2018-08-16 02:00 | NUR ---
PT SLEEPING IN BED. NO S/S OF RESPIRATORY DISTRESS OR DISCOMFORT NOTED AT THIS TIME. WILL CONTINUE TO MONITOR.
[2018-08-16 04:00] VITALS: BP 163/94
--- NOTE | 2018-08-16 04:00 | NUR ---
VITAL SIGNS TAKEN AND TOLERATED WELL. BP 163/94, HR 85. WILL RE-ASSESS. NO S/S OF RESPIRATORY DISTRESS OR DISCOMFORT NOTED AT THIS TIME. WILL CONTINUE TO MONITOR.
[2018-08-16] MEDS: hydrALAZINE 25 MG TAB PO PRN (04:36)
--- NOTE | 2018-08-16 04:36 | NUR ---
BP 182/92. APRESOLINE GIVEN. PT TOLERATED WELL. NO S/S OF RESPIRATORY DISTRESS OR DISCOMFORT NOTED AT THIS TIME. WILL CONTINUE TO MONITOR.
--- NOTE | 2018-08-16 06:00 | NUR ---
PT RESTING IN BED. NO S/S OF RESPIRATORY DISTRESS OR DISCOMFORT NOTED AT THIS TIME. WILL CONTINUE TO MONITOR.
--- NOTE | 2018-08-16 07:09 | NUR ---
ENDORSED PT CARE TO DAY SHIFT NURSE ALEX-RN FOR CONTINUITY OF CARE.
--- NOTE | 2018-08-16 07:10 | NUR ---
Received report from pm nurse Keyana. Pt awake, aaox4, FLACC 0, able to verbalize needs. Call light within reach. Right ac IV saline lock intact & asymptomatic.
[2018-08-16 07:25] LABS: BASOPHILS % (AUTO) 0.7 % (0.0-2.0); EOSINOPHILS # (AUTO) 0.2 K/uL (0-0.4); EOSINOPHILS % (AUTO) 3.6 % (0.0-4.0); HEMATOCRIT 32.9 % (36-48); HEMOGLOBIN 10.3 g/dL (12.0-16.0); LYMPHOCYTES # (AUTO) 2.5 K/uL (2.5-16.5); LYMPHOCYTES % (AUTO) 38.7 % (20.5-51.1); MEAN CORPUSCULAR HEMOGLOBIN 30 pg (27-31); MEAN CORPUSCULAR HGB CONC 32 g/dL (33-37); MEAN CORPUSCULAR VOLUME 94.8 fL (80-94); MONOCYTES # (AUTO) 0.4 K/uL (0.8-1.0); MONOCYTES % (AUTO) 5.9 % (1.7-9.3); NEUTROPHILS # (AUTO) 3.3 K/uL (1.8-7.7); NEUTROPHILS % (AUTO) 51.1 % (42.2-75.2); PLATELET COUNT (AUTO) 194 K/uL (140-450); RED BLOOD CELL COUNT(AUTO) 3.47 MIL/uL (4.20-5.40); RED CELL DISTRIBUTION WIDTH 15.7 % (11.6-13.7); WHITE BLOOD COUNT (AUTO) 6.5 K/uL (4.8-10.8)
[2018-08-16 08:00] VITALS: BP 163/98
[2018-08-16] MEDS: LORATADINE 10 MG TAB PO SCH (08:10)
[2018-08-16] MEDS: amLODIPine 5 MG TAB PO SCH (08:11)
[2018-08-16 08:38] LABS: ALBUMIN 3.1 g/dL (3.4-5.0); ANION GAP 15.6 (8-16); POTASSIUM 4.6 mmol/L (3.5-5.1); TOTAL BILIRUBIN 0.4 mg/dL (0.0-1.0)
[2018-08-16 08:41] LABS: CREATININE 7.5 mg/dL (0.6-1.3)
[2018-08-16] MEDS ORDERED: PANT40EC PO (08:51)
[2018-08-16 09:00] VITALS: BP 155/90
[2018-08-16] MEDS ORDERED: PANTOPRAZOLE 40 MG TABEC PO SCH (09:00)
--- NOTE | 2018-08-16 09:40 | NUR ---
Asked pt re: PNA & FLU vaccine record. Pt states she doesn't have it, but states she will f/u with her dialysis center & get the vaccines from there.
--- NOTE | 2018-08-16 10:00 | NUR ---
Written & verbal discharge instructions provided to pt. Pt verbalized understanding. Right ac IV discontinued. Pt able to change into personal clothes independently with good safety awareness. Per pt, her will pick her up in a few minutes.
--- NOTE | 2018-08-16 10:05 | NUR ---
Pt discharged at this time to home, accompanied by . Name band removed. Amb off unit with steady gait. All belongings with pt upon departure.
== END 2018-08-16 10:05 | disposition home or self-care (01) | DRG 425 ==
LOC: MED 18:42 → MTU 08-15 00:17
PROVIDERS: ADMIT Internal Medicine; ATTEND Internal Medicine
PROC: 5A1D70Z Performance of Urinary Filtration, Intermittent, Less than 6 Hours Per Day (ICD-10-PCS; principal; 2018-08-15)
DX: E87.5 Hyperkalemia (principal); I12.0 Hypertensive chronic kidney disease with stage 5 chronic kidney disease or end stage renal disease; R04.0 Epistaxis; N18.6 End stage renal disease; E78.5 Hyperlipidemia, unspecified; D64.9 Anemia, unspecified; I16.0 Hypertensive urgency; Z99.2 Dependence on renal dialysis; Z79.899 Other long term (current) drug therapy
CPT/HCPCS: 36415; 71045; 80053; 82948; 83540; 83690; 84484; 85025; 85610; 85730; 87081; 96372; 96374; 96375; 99285; J0360; J1200; J1644; J2270; J3490; J7030; Q0162

== ENCOUNTER 2018-10-19 23:30 | Emergency (ER) | payer OTHER ==
[~2018-10-19] VITALS: Ht 149.9 cm; Wt 49.9 kg
[~2018-10-19 23:30] MED LIST changes: -AMOX500C25 PO; -LOSA100T1 PO; +MULT-1469 PO; +PANT40EC PO
[2018-10-19 23:45] VITALS: BP 186/117
--- NOTE | 2018-10-19 23:52 | NUR ---
PT AMBULATED TO LOBBY WITH VSS. PROVIDING URINE.
--- NOTE | 2018-10-20 00:22 | NUR ---
CALLED FOR PT IN THE LOBBY. PT DID NOT ANSWER.
--- NOTE | 2018-10-20 00:35 | NUR ---
PT CALLED FROM LOBBY FOR BED, NO ANSWER.
--- NOTE | 2018-10-20 00:50 | NUR ---
PT CALLED FROM LOBBY FOR BED, NO RESPONSE.
--- NOTE | 2018-10-20 01:10 | NUR ---
PATIENT LEFT WITHOUT BEING SEEN BY DR. MI. NO FURTHER CARE PROVIDED FOR PATIENT.
== END 2018-10-20 00:35 | disposition left against medical advice (07) ==
LOC: MED 23:30
DX: R07.89 Other chest pain (principal); R06.02 Shortness of breath; I12.0 Hypertensive chronic kidney disease with stage 5 chronic kidney disease or end stage renal disease; N18.6 End stage renal disease; Z99.2 Dependence on renal dialysis
CPT/HCPCS: 93005; 99281

== ENCOUNTER 2018-12-31 00:43 | Emergency (ER) | payer OTHER ==
[~2018-12-31] VITALS: Ht 152.4 cm; Wt 55.8 kg
[2018-12-31 00:44] VITALS: BP 186/106
--- NOTE | 2018-12-31 00:55 | NUR ---
PT AMBULATED BACK TO LOBBYLADY
--- NOTE | 2018-12-31 01:34 | NUR ---
PT AMBULATED TO BED 9
[2018-12-31 01:50] VITALS: BP 186/106
--- NOTE | 2018-12-31 01:50 | NUR ---
PATIENT LEFT WITHOUT BEING SEEN BY DR. VELÁZQUEZ. NO FURTHER CARE PROVIDED FOR PATIENT.
== END 2018-12-31 01:50 | disposition left against medical advice (07) ==
LOC: MED 00:43
DX: R06.00 Dyspnea, unspecified (principal); R10.13 Epigastric pain; R51 Headache; I10 Essential (primary) hypertension; Z53.21 Procedure and treatment not carried out due to patient leaving prior to being seen by health care provider

== ENCOUNTER 2020-03-17 07:56 | Emergency (ER) | payer OTHER ==
[~2020-03-17] VITALS: Ht 147.3 cm; Wt 53.3 kg
[2020-03-17 08:05] VITALS: BP 247/155
--- NOTE | 2020-03-17 08:12 | NUR ---
PATIENT AMBULATED TO BED 11.
--- NOTE | 2020-03-17 08:20 | NUR ---
34/F C/O RIGHT ARM PAIN AND BRUISING X 2 DAYS. STATES PAIN AND BRUISING STARTED AFTER BP CUFF USED ON ARM. DENIES OTHER INJURIES. PT HYPERTENSIVE 247/155 AT TRIAGE. PAIN TAKEN ON CALF DUE TO RIGHT ARM PAIN AND LEFT ARM AV FISTULA. 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 ANURIC X 1 YEAR. APPEARS NAD. med hx: HTN, ESRD WITH HEMODIAYSIS M/W/F
--- NOTE | 2020-03-17 08:23 | NUR ---
DR. ANNA EVALUATING PT AT BEDSIDE
[2020-03-17] MEDS ORDERED: KETOROLAC 15 MG/ML VIAL IVP ONE (08:30)
[2020-03-17] MEDS ORDERED: hydrALAZINE 20 MG/ML VIAL IVP ONE (08:30)
[2020-03-17 08:46] LABS: BASOPHILS # (AUTO) 0.1 K/uL (0.00-0.22); BASOPHILS % (AUTO) 0.8 % (0.0-2.0); EOSINOPHILS # (AUTO) 0.2 K/uL (0-0.4); EOSINOPHILS % (AUTO) 2.5 % (0.0-4.0); HEMATOCRIT 29.3 % (36-48); HEMOGLOBIN 9.8 g/dL (12.0-16.0); LYMPHOCYTES # (AUTO) 1.6 K/uL (2.5-16.5); LYMPHOCYTES % (AUTO) 21.5 % (20.5-51.1); MEAN CORPUSCULAR HEMOGLOBIN 35 pg (27-31); MEAN CORPUSCULAR HGB CONC 33 g/dL (33-37); MEAN CORPUSCULAR VOLUME 103.1 fL (80-94); MONOCYTES # (AUTO) 0.5 K/uL (0.8-1.0); MONOCYTES % (AUTO) 6.2 % (1.7-9.3); NEUTROPHILS # (AUTO) 5.3 K/uL (1.8-7.7); PLATELET COUNT (AUTO) 180 K/uL (140-450); RED BLOOD CELL COUNT(AUTO) 2.84 MIL/uL (4.20-5.40); RED CELL DISTRIBUTION WIDTH 14.9 % (11.6-13.7); WHITE BLOOD COUNT (AUTO) 7.7 K/uL (4.8-10.8)
--- NOTE | 2020-03-17 08:46 | NUR ---
LABS DRAWN BEDSIDE AND HANDED TO PAPER BAG MAKER
--- NOTE | 2020-03-17 09:01 | NUR ---
Pt c/o left chest pressure/pain sensation and SOB. 100%RA. Noted restless legs. Pt states she does have hx of anxiety. Dr. Bustamante notified. Addendum: 03/17/20 at 0905 by AYAH x 10 min
[2020-03-17 09:05] LABS: PROTHROMBIN TIME 10.1 secs (10.8-13.4)
--- NOTE | 2020-03-17 09:08 | NUR ---
ATTEMPTED TO OBTAIN EKG ON PT. PT VERY RESTLESS. WOULD NOT STOP MOVING. SHAKING THE LEGS AND SITTING UP AND DOWN. STATES UNCOMFORTABLE WHEN LYING STILL. AOX4. INFORMED PT ONLY NEEDS TO LIE STILL FOR A MINUTE TO OBTAIN EKG. PT UNABLE TO LIE STILL.
--- NOTE | 2020-03-17 09:40 | NUR ---
ATTEMPTED TO OBTAIN EKG ON PT. PT VERY RESTLESS. WOULD NOT STOP MOVING.
--- NOTE | 2020-03-17 09:43 | NUR ---
ATTEMPTED TO DO EKG, UNABLE TO COMPLETE PATIENT WON'T STOP MOVING AND IS RESTLESS. ERMD AWARE.
--- NOTE | 2020-03-17 09:49 | NUR ---
DR. ANNA EVALUATING PT AT BEDSIDE Addendum: 03/17/20 at 1021 by AYAH RE-EVALUATING
[2020-03-17] MEDS ORDERED: ALPRAZolam 0.5 MG TAB PO STA (09:50)
--- NOTE | 2020-03-17 10:21 | NUR ---
EMT AT BEDSIDE FOR EKG
--- NOTE | 2020-03-17 10:26 | NUR ---
Edi sotelo in [facility] - 03/17/20 at [address] ANNA SPEAKING W/ PT AT BEDSIDE
--- NOTE | 2020-03-17 10:29 | NUR ---
DR. ANNA SPEAKING W/ PT AT BEDSIDE
--- NOTE | 2020-03-17 10:43 | NUR ---
PT WILL BE DISCHARGED. OFFERED TO CALL TO [facility] [employer] PT. PT STATES SHE WILL CALL HIM HERSELF.
--- NOTE | 2020-03-17 10:45 | NUR ---
Patient discharged with v/s stable. Written and verbal after care instructions given and explained. Patient verbalized understanding. Ambulatory with steady gait. All questions addressed prior to discharge. Advised to follow up with PMD. DR. ANNA HAS INSTRUCTED PT TO GO TO DIALYSIS. PT WILL BE PICKED UP BY .
[2020-03-17 10:46] VITALS: BP 130/65
== END 2020-03-17 10:45 | disposition home or self-care (01) ==
LOC: MED 07:56
DX: M79.601 Pain in right arm (principal); I10 Essential (primary) hypertension; N28.9 Disorder of kidney and ureter, unspecified; Z91.15 Patient's noncompliance with renal dialysis; Z79.899 Other long term (current) drug therapy
CPT/HCPCS: 36415; 84484; 85025; 85610; 85730; 93005; 96374; 96375; 99284; J0360; J1885